=== PATIENT | male | born 1970 | race Two or more races ===

== ENCOUNTER → 2018-11-13 | Outpatient (CLI) | payer OTHER | END | disposition home or self-care (01) | LOC: RAD 15:31 | DX: M25.561 Pain in right knee (principal); M25.562 Pain in left knee ==

== ENCOUNTER 2019-11-28 15:04 | Emergency (ER) | payer OTHER ==
[~2019-11-28] VITALS: Ht 193 cm; Wt 148.8 kg
[2019-11-28] MEDS ORDERED: ZIAC (15:51)
== END 2019-11-28 18:01 | disposition home or self-care (01) ==
LOC: ER 15:04
DX: S50.02XA Contusion of left elbow, initial encounter (principal); S40.012A Contusion of left shoulder, initial encounter; W01.198A Fall on same level from slipping, tripping and stumbling with subsequent striking against other object, initial encounter; Y93.E9 Activity, other interior property and clothing maintenance; Y92.018 Other place in single-family (private) house as the place of occurrence of the external cause; Y99.8 Other external cause status